=== PATIENT | male | born 1985 ===

== ENCOUNTER 2018-02-22 00:34 | Emergency (ER) | payer SELFPAY ==
[2018-02-22 00:39] VITALS: BP 124/73
[2018-02-22] MEDS ORDERED: IBUPROFEN PO ONE (01:26)
--- NOTE | 2018-02-22 02:23 | XRay Report ---
FINAL REPORT PROCEDURE: XR WRIST 2V RT TECHNIQUE: RIGHT wrist radiographs, including AP, lateral, and oblique views. CPT 16525 HISTORY: pain in wrist and mid forearm COMPARISON: No prior studies are available for comparison. FINDINGS: Fracture (s) and/or Dislocation(s): None . Alignment: Normal . Joint space(s): Normal . Soft tissues: Normal . Bone mineralization: Normal . Foreign bodies: None . IMPRESSION: Normal Examination.
== END 2018-02-22 02:47 | disposition left against medical advice (07) ==
LOC: ED 00:34
DX: M25.532 Pain in left wrist (principal); Z53.21 Procedure and treatment not carried out due to patient leaving prior to being seen by health care provider

== ENCOUNTER 2019-01-18 16:56 | Emergency (ER) | payer SELFPAY ==
--- NOTE | 2019-01-18 18:10 | Event Note ---
ED Screening Note ED Screening Note: pt presents epigastric abd pain that began yesterday N/V/D after eating some chicken no fever +marijuana This initial assessment/diagnostic orders/clinical plan/treatment(s) is/are subject to change based on patients health status, clinical progression and re- assessment by fellow clinical providers in the ED. Further treatment and workup at subsequent clinical providers discretion. Patient/guardian urged not to elope from the ED as their condition may be serious if not clinically assessed and jan spangler. Initial orders include: labs, UA
[2019-01-18] MEDS ORDERED: ONDANSETRON 4 MG/2 ML INJ IV ONE (19:01)
[2019-01-18] MEDS ORDERED: SODIUM CHLORIDE 0.9% 1000 ML 1,000 ML IV ONE (19:01)
--- NOTE | 2019-01-18 19:07 | Emergency Department Report ---
HPI - General Chief Complaint: Abdominal Pain Time Seen by Provider: 01/18/19 18:08 - HPI HPI: Room 37 The patient is a 33-year-old male presenting with a chief complaint of abdominal pain. The patient states for the past 2-3 months he's had episodic severe periumbilical abdominal pain associated with nausea vomiting and diarrhea. The patient states this pain comes in waves sometimes lasts up to 12 hours. Patient states his last episode of this pain occurred last night. The patient states he has not yet sought medical attention for the above symptoms. ED Past Medical Hx - Past Medical History Previous Medical History?: No - Surgical History Past Surgical History?: Yes Additional Surgical History: LLE fracture repair - Family History Family history: no significant - Social History Smoking Status: Former Smoker Substance Use Type: Marijuana - Medications Home Medications: Home Medications Medication Instructions Recorded Confirmed Last Taken Type Famotidine [Pepcid] 20 mg PO BID #30 tablet 01/18/19 Unknown Rx HYDROcodone/APAP 5-325 [[place] 1 - 2 each PO Q6HR PRN #10 tablet 01/18/19 Unknown Rx 5/325] Promethazine [Phenergan] 25 mg PO Q6HR PRN #20 tab 01/18/19 Unknown Rx Promethazine [Phenergan] 25 mg VA Q6HR PRN #5 supp.rect 01/18/19 Unknown Rx ED Review of Systems ROS: Stated complaint: EXTREME STOMACH PAIN Other details as noted in HPI Constitutional: fever (subjective) Eyes: denies: eye pain ENT: denies: throat pain Respiratory: no symptoms reported Cardiovascular: denies: chest pain Endocrine: no symptoms reported Gastrointestinal: abdominal pain, nausea, vomiting, diarrhea Genitourinary: denies: dysuria Musculoskeletal: denies: back pain Neurological: denies: headache Physical Exam - Physical Exam Vital Signs: Vital Signs 01/18/19 18:09 Temperature 98.2 F Pulse Rate 65 Respiratory 16 Rate Blood Pressure 122/66 O2 Sat by Pulse 99 Oximetry Physical Exam: GENERAL: The patient is well-developed well-nourished male lying on stretcher not appearing to be in acute distress. [] HEENT: Normocephalic. Atraumatic. Extraocular motions are intact. Patient has moist mucous membranes. NECK: Supple. Trachea midline CHEST/LUNGS: Clear to auscultation. There is no respiratory distress noted. HEART/CARDIOVASCULAR: Regular. There is no tachycardia. There is no gallop rub or murmur. ABDOMEN: Abdomen is soft, with tenderness to palpation in the suprapubic, right lower quadrant and right upper quadrant. Patient has normal bowel sounds. There is no abdominal distention. SKIN: There is no rash. There is no edema. There is no diaphoresis. NEURO: The patient is awake, alert, and oriented. The patient is cooperative. The patient has normal speech MUSCULOSKELETAL: There is no evidence of acute injury. ED Course Vital Signs 01/18/19 18:09 Temperature 98.2 F Pulse Rate 65 Respiratory 16 Rate Blood Pressure 122/66 O2 Sat by Pulse 99 Oximetry ED Medical Decision Making - Lab Data Result diagrams: 01/18/19 19:18 01/18/19 19:18 Laboratory Tests 01/18/19 01/18/19 01/18/19 19:18 19:18 Unknown WBC 9.1 RBC 4.40 Hgb 14.5 Hct 42.7 MCV 97 H MCH 33 H MCHC 34 RDW 12.7 L Plt Count 190 Lymph % (Auto) 11.9 L [place] % (Auto) 6.4 Eos % (Auto) 0.6 Baso % (Auto) 0.8 Lymph # 1.1 L [place] # 0.6 Eos # 0.1 Baso # 0.1 Seg Neutrophils % 80.3 H Seg Neutrophils # 7.3 Sodium 139 Potassium 4.4 Chloride 100.6 Carbon Dioxide 24 Anion Gap 19 BUN 14 Creatinine 1.1 Estimated GFR > 60 BUN/Creatinine Ratio 13 Glucose 101 H Calcium 9.3 Total Bilirubin 0.40 AST 17 ALT 12 Alkaline Phosphatase 62 Total Protein 6.8 Albumin 4.6 Albumin/Globulin Ratio 2.1 Lipase 111 H Urine Color Straw Urine Turbidity Clear Urine pH 9.0 H Ur Specific [place] 1.009 Urine Protein <15 mg/dl Urine Glucose (UA) Neg Urine Ketones Neg Urine Blood Neg Urine Nitrite Neg Urine Bilirubin Neg Urine Urobilinogen < 2.0 Ur Leukocyte Esterase Neg Urine WBC (Auto) < 1.0 Urine RBC (Auto) < 1.0 - Radiology Data Radiology results: report reviewed (CT abdomen and pelvis), image reviewed (CT abdomen and pelvis) [facility] [address] [place] [address] Cat Scan Report Signed Patient: CHIQUI VALENTIN MR#: [id number] : 1985 Acct:[id number] Age/Sex: 33 / M ADM Date: 01/18/19 Loc: ED Attending Dr: Ordering Physician: BART SAINZ MD Date of Service: 01/18/19 Procedure(s): CT abdomen pelvis w con Accession Number(s): [id number] cc: BART SAINZ MD CT ABDOMEN AND PELVIS WITH CONTRAST HISTORY: episodic periumbilical pain, n/v/d. COMPARISON: None. TECHNIQUE: CT images of the abdomen and pelvis were obtained following administration of intravenous contrast. All CT scans at this location are performed using CT dose reduction for ALARA by means of automated exposure control. CONTRAST: 100 ml of intravenous contrast administered. FINDINGS: Lungs/bones: Lung bases are clear. No acute osseous abnormality identified. Abdomen/pelvis: The liver is mildly enlarged with no focal mass identified. The gallbladder, spleen, pancreas, adrenals, kidneys, and proximal GI tract appear unremarkable. The urinary bladder is mostly collapsed. Prostate is unremarkable. No pelvic free fluid identified. No acute colonic abnormality identified. The terminal ileum and appendix appear normal. IMPRESSION: 1. Unremarkable examination. Signer Name: Bradford Ordonez MD Signed: 01/18/2019 9:38 PM Workstation Name: [id number] Transcribed By: JW Dictated By: Bradford Ordonez MD Electronically Authenticated By: Bradford Ordonez MD Signed Date/Time: 01/18/192137 DD/ 35 TD/TT: - Medical Decision Making I discussed the patient's CT findings and lab results with him including lipase. Explained how it is important that he follows up with manager steel for further management. Patient states he feels better since he's been in the emergency department. Strong warnings given - Differential Diagnosis Crohn's disease, ulcerative colitis, irritable bowel syndrome, appendicitis Critical care attestation.: If time is entered above; I have spent that time in minutes in the direct care of this critically ill patient, excluding procedure time. ED Disposition Clinical Impression: Abdominal pain, Elevated lipase, Nausea & vomiting Disposition: - TO HOME OR SELFCARE Is pt being admited?: No Does the pt Need Aspirin: No Condition: Stable Instructions: Abdominal Pain (ED) Prescriptions: HYDROcodone/APAP 5-325 [[place] 5/325] 1 - 2 each PO Q6HR PRN #10 tablet PRN Reason: Pain Famotidine [Pepcid] 20 mg PO BID #30 tablet Promethazine [Phenergan] 25 mg PO Q6HR PRN #20 tab PRN Reason: Nausea Promethazine [Phenergan] 25 mg VA Q6HR PRN #5 supp.rect PRN Reason: Vomiting Referrals: [facility] [Outside] - 3-5 Days EVELIN SHORE MD [Staff Physician] - [facility] (Dr. Shore is a manager steel. Please follow up with him for further evaluation) Time of Disposition: 22:05
[2019-01-18 19:15] LABS: Bilirubin,Urine NEG (Negative); Blood,Urine NEG (Negative); Color,Urine Straw (Yellow); Protein,Urine <15 mg/dL mg/dL (Negative); RBC,Urine < 1.0 /HPF (0.0-6.0); Urobilinogen,Urine < 2.0 mg/dL (<2.0); WBC,Urine < 1.0 /HPF (0.0-6.0)
[2019-01-18 19:34] LABS: Basophils # (Auto) 0.1 K/mm3 (0.0-0.1); Basophils % (Auto) 0.8 % (0.0-1.8); Eosinophils # (Auto) 0.1 K/mm3 (0.0-0.4); Eosinophils % (Auto) 0.6 % (0.0-4.3); Hematocrit 42.7 % (35.5-45.6); Hemoglobin 14.5 gm/dl (11.8-15.2); Lymphocytes # (Auto) 1.1 K/mm3 (1.2-5.4); Lymphocytes % (Auto) 11.9 % (13.4-35.0); Mean Corpuscular HGB Conc 34 % (32-34); Mean Corpuscular Volume 97 fl (84-94); Monocytes # (Auto) 0.6 K/mm3 (0.0-0.8); Monocytes % (Auto) 6.4 % (0.0-7.3); Platelet Count 190 K/mm3 (140-440); Red Cell Distribution Width 12.7 % (13.2-15.2)
[2019-01-18 19:54] LABS: Alanine Aminotransferase 12 units/L (7-56); Albumin 4.6 g/dL (3.9-5); BUN/Creatinine Ratio 13; Blood Urea Nitrogen 14 mg/dL (9-20); Calcium 9.3 mg/dL (8.4-10.2); Hemolysis Index 13
--- NOTE | 2019-01-18 21:42 | Cat Scan Report ---
CT ABDOMEN AND PELVIS WITH CONTRAST HISTORY: episodic periumbilical pain, n/v/d. COMPARISON: None. TECHNIQUE: CT images of the abdomen and pelvis were obtained following administration of intravenous contrast. All CT scans at this location are performed using CT dose reduction for ALARA by means of automated exposure control. CONTRAST: 100 ml of intravenous contrast administered. FINDINGS: Lungs/bones: Lung bases are clear. No acute osseous abnormality identified. Abdomen/pelvis: The liver is mildly enlarged with no focal mass identified. The gallbladder, spleen, pancreas, adrenals, kidneys, and proximal GI tract appear unremarkable. The urinary bladder is mostly collapsed. Prostate is unremarkable. No pelvic free fluid identified. N o acute colonic abnormality identified. The terminal ileum and appendix appear normal. IMPRESSION: 1. Unremarkable examination. Signer Name: Bradford Ordonez MD Signed: 01/18/2019 9:38 PM Workstation Name: [id number]
[2019-01-18 22:19] VITALS: BP 96/62
== END 2019-01-18 22:18 | disposition home or self-care (01) ==
LOC: ED 16:56
DX: R10.13 Epigastric pain (principal); R11.2 Nausea with vomiting, unspecified; R74.8 Abnormal levels of other serum enzymes; F12.10 Cannabis abuse, uncomplicated; Z87.891 Personal history of nicotine dependence; Z79.899 Other long term (current) drug therapy
CPT/HCPCS: 36415; 74177; 80053; 81001; 83690; 85025; 96361; 96374; 99284; J2405; J7030; Q9967